=== PATIENT | female | born 1950 ===

== ENCOUNTER → 2023-07-30 | Outpatient (CLI) | payer MEDICARE | END | disposition home or self-care (01) | LOC: LAB SHORT 18:29 → LAB 18:29 | DX: L08.9 Local infection of the skin and subcutaneous tissue, unspecified (principal) | CPT/HCPCS: 87070; 87077; 87147; 87186; 87205 ==

== ENCOUNTER → 2024-12-20 | Outpatient (CLI) | payer MEDICARE | LOC: LAB SHORT 13:15 → LAB 13:15 → LAB SHORT 12-21 13:09 | DX: L08.9 Local infection of the skin and subcutaneous tissue, unspecified (principal); L28.1 Prurigo nodularis; Z79.899 Other long term (current) drug therapy | CPT/HCPCS: 87070; 87077; 87147; 87186; 87205 ==